=== PATIENT | female | born 1965 | race Caucasian/White ===

== ENCOUNTER 2020-02-14 06:28 | Observation (INO) | payer BC ==
[2020-02-14] MEDS ORDERED: HEPARIN SODIUM,PORCINE 5,000 UNIT/ML 1 ML VIAL IV PRN (06:42)
[2020-02-14] MEDS ORDERED: NITROGLYCERIN SL TABS 0.4 MG TAB SUBLINGUAL PRN (06:42)
[2020-02-14] MEDS ORDERED: HEPARIN SOD,PORK IN 0.45% NACL 25,000 UNIT in 0.45% NACL 1 250ML.BAG IV SCH (06:45)
--- NOTE | 2020-02-14 06:46 | ED ---
Chest Pain HPI - General Chief Complaint: Chest Pain Stated Complaint: Chest Pain Time Seen by Provider: 02/14/20 06:42 Source: patient, family, RN notes reviewed, old records reviewed Mode of arrival: ambulatory Limitations: no limitations - History of Present Illness Initial Comments: This is a 54-year-old female DF for evaluation patient presents today for evaluation regarding significant chest pain chest pain some diaphoresis seen at prior facility. Patient was transferred to our facility secondary to inability to take care of patient at the facility. Patient remains with mild chest pain but for the most part resolved currently. No shortness of breath no sweating. No recent travel history or sick contacts MD Complaint: chest pain -: hour(s) Onset: during rest, during exertion Pain Location: substernal Pain Radiation: none Severity: mild Quality: tightness, heaviness Consistency: intermittent, now resolved Improves With: nothing Worsens With: nothing Treatments Prior to Arrival: none - Related Data Allergies Allergy/AdvReac Type Severity Reaction Status Date / Time camphor [From Biofreeze] Allergy Rash/Hives Verified 02/14/20 06:34 menthol [From Biofreeze] Allergy Rash/Hives Verified 02/14/20 06:34 Penicillins Allergy Rash/Hives Verified 02/14/20 06:34 Review of Systems ROS Statement: Those systems with pertinent positive or pertinent negative responses have been documented in the HPI. ROS Other: All systems not noted in ROS Statement are negative. Past Medical History Past Medical History: Hyperlipidemia History of Any Multi-Drug Resistant Organisms: None Reported Past Surgical History: Cholecystectomy, Orthopedic Surgery Past Psychological History: No Psychological Hx Reported Smoking Status: Never smoker Past Alcohol Use History: Occasional Past Drug Use History: None Reported General Exam Limitations: no limitations General appearance: alert, in no apparent distress Head exam: Present: atraumatic, normocephalic, normal inspection Eye exam: Present: normal appearance, PERRL, EOMI. Absent: scleral icterus, c onjunctival injection, periorbital swelling ENT exam: Present: normal exam, mucous membranes moist Neck exam: Present: normal inspection. Absent: tenderness, meningismus, lymphadenopathy Respiratory exam: Present: normal lung sounds bilaterally. Absent: respiratory distress, wheezes, rales, rhonchi, stridor Cardiovascular Exam: Present: regular rate, normal rhythm, normal heart sounds. Absent: systolic murmur, diastolic murmur, rubs, gallop, clicks GI/Abdominal exam: Present: soft, normal bowel sounds. Absent: distended, tenderness, guarding, rebound, rigid Extremities exam: Present: normal inspection, full ROM, normal capillary refill. Absent: tenderness, pedal edema, joint swelling, calf tenderness Back exam: Present: normal inspection Neurological exam: Present: alert, oriented X3, CN II-XII intact Psychiatric exam: Present: normal affect, normal mood Skin exam: Present: warm, dry, intact, normal color. Absent: rash Course Vital Signs 02/14/20 06:29 Temperature 98.2 F Pulse Rate 63 Respiratory 18 Rate Blood Pressure 136/83 O2 Sat by Pulse 99 Oximetry - Reevaluation(s) Reevaluation #1: 02/14/20 06:44 Medical records reviewed 02/14/20 06:44 Spoke with transferring physician regarding patient 02/14/20 06:44 Transfer paperwork is reviewed Reevaluation #2: 02/14/20 06:44 Chest pain remains resolved - Consultations Consultation #1: Spoke with sound regarding admission Chest Pain MDM - MDM 54 female exception in transfer for chest pain observation. Patient will be admitted for chest pain rule out ACS Disposition Clinical Impression: Chest pain Disposition: ADMITTED IP TO THIS HOSP Condition: Undetermined Instructions (If sedation given, give patient instructions): Chest Pain (ED) Is patient prescribed a controlled substance at d/c from ED?: No Referrals: Castillo Dubose MD [Primary Care Provider] - 1-2 days
--- NOTE | 2020-02-14 08:50 | P.CRDCN ---
History of Present Illness History of present illness: HISTORY OF PRESENTING ILLNESS This is a pleasant 54-year-old female past medical history significant for dyslipidemia diagnosed one week ago by her primary care physician. She denies prior history of coronary artery disease and does not follow with a certified dialysis technician for any reason. We have been asked to see in consultation for chest pain. She states yesterday while at work she developed a discomfort in the epigastric region described as a sharp shooting pain. Initially while she was eating lunch she began coughing uncontrollably which is abnormal for her. Her discomfort started shortly thereafter. It was described as a tight sensation in the midsternal region. There is no radiation to the back, neck or jaw. Shortly thereafter while she was continuing to work she noticed discomfort in the left hand. 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 The pain was exacerbated by ongoing movement of her hand and thumb and relieved at rest. The chest tightness continued to persist and is still ongoing at this time. The discomfort is not reproducible on exam or related to inspiration. She initially presented to the [facility] and was transferred here for further cardiac evaluation. DIAGNOSTICS EKG reveals in his mechanism with no acute ischemic changes. Chest xray negative for an acute cardiopulmonary process. Laboratory reviewed, WBC 7.5, hemoglobin 14.5, creatinine 0.8 and cardiac enzymes negative 1. Current cardiac medications include atorvastatin 10 mg at bedtime. REVIEW OF SYSTEMS At the time of my exam: CONSTITUTIONAL: Denies fever or chills. CARDIOVASCULAR: Denies chest pain, shortness of breath, orthopnea, PND or palpitations. RESPIRATORY: Denies cough. GASTROINTESTINAL: Denies abdominal pain, diarrhea, constipation, nausea or vomiting. MUSCULOSKELETAL: Denies myalgias. NEUROLOGIC: Denies numbness, tingling or weakness. ENDOCRINE: Denies fatigue, weight change, polydipsia or polyurina. GENITOURINARY: Denies burning, hematuria or urgency with micturation. HEMATOLOGIC: Denies history of anemia or bleeding. PHYSICAL EXAMINATION Blood pressure 136/83 heart rate 63 afebrile and maintaining oxygen saturation on room air. CONSTITUTIONAL: No apparent distress. HEENT: Head is normocephalic. Pupils are equal, round. Sclerae anicteric. Mucous membranes of the mouth are moist. No JVD. No carotid bruit. CHEST EXAMINATION: Lungs are clear to auscultation. No chest wall tenderness is noted on palpation or with deep breathing. HEART EXAMINATION: Regular rate and rhythm. S1, S2 heard. No murmurs, gallops or rub. ABDOMEN: Soft, nontender. Positive bowel sounds. EXTREMITIES: 2+ peripheral pulses, no lower extremity edema and no calf tenderness. NEUROLOGIC EXAMINATION: Patient is awake, alert and oriented x3. ASSESSMENT Chest pain, atypical. Left hand pain, likely musculoskeletal related to repetitive movement from her daily job. Dyslipidemia PLAN Obtaine second troponin stat. If negative heparin infusion can be discontinued and we will proceed with stress echocardiogram. Obtain 2-D echocardiogram and Doppler study to assess cardiac structure and function. If stress test is normal she may be discharged from a cardiac perspective to follow-up with Dr. Cowart as an outpatient. Thank you kindly for this consultation. Nurse Practitioner note has been reviewed, I agree with a documented findings and plan of care. Patient was seen and examined. Past Medical History Past Medical History: Hyperlipidemia History of Any Multi-Drug Resistant Organisms: None Reported Past Surgical History: Cholecystectomy, Orthopedic Surgery Past Psychological History: No Psychological Hx Reported Smoking Status: Never smoker Past Alcohol Use History: Occasional Past Drug Use History: None Reported Medications and Allergies Home Medications Medication Instructions Recorded Confirmed Type Atorvastatin [Lipitor] 10 mg PO HS 02/14/20 02/14/20 History Cholecalciferol [Vitamin D3 (25 1,000 unit PO DAILY 02/14/20 02/14/20 History Mcg = 1000 Iu)] Meloxicam [Mobic] 15 mg PO DAILY PRN 02/14/20 02/14/20 History Vitamin B Complex 1 cap PO DAILY 02/14/20 02/14/20 History Allergies Allergy/AdvReac Type Severity Reaction Status Date / Time camphor [From Biofreeze] Allergy Rash/Hives Verified 02/14/20 07:19 menthol [From Biofreeze] Allergy Rash/Hives Verified 02/14/20 07:19 mold Allergy Unknown Verified 02/14/20 07:19 Penicillins Allergy Rash/Hives Verified 02/14/20 07:19 Physical Exam Vitals: Vital Signs Temp Pulse Resp BP Pulse Ox 02/14/20 06:29 98.2 F 63 18 136/83 99 Intake and Output 02/13/20 02/14/20 02/14/20 22:59 06:59 14:59 Other: Weight 63.049 kg Results Current Medications Generic Name Dose Route Start Last Admin Trade Name Freq PRN Reason Stop Dose Admin Aspirin 81 mg 02/15/20 09:00 Aspirin PO DAILY [facility] Atorvastatin Calcium 80 mg 02/14/20 09:00 Lipitor PO DAILY [facility] Heparin Sodium (Porcine) 0 unit 02/14/20 06:42 Heparin IV Q6HR PRN Low PTT Protocol Heparin Sodium/Sodium Chloride 250 mls @ 7.566 mls/hr 02/14/20 06:45 02/14/20 07:21 25,000 unit/ Sodium Chloride IV 12 units/kg/hr .Q24H DAHLIA 7.566 mls/hr Administration Protocol 12 UNITS/KG/HR Nitroglycerin 0.4 mg 02/14/20 06:42 Nitrostat SUBLINGUAL Q5M PRN Chest Pain Intake and Output 02/13/20 02/14/20 02/14/20 22:59 06:59 14:59 Other: Weight 63.049 kg
[2020-02-14] MEDS ORDERED: METOPROLOL TARTRATE 25 MG TAB PO SCH (09:00)
[2020-02-14] MEDS ORDERED: ATORVASTATIN 80 MG TAB PO SCH (09:00)
[2020-02-14 09:06] LABS: Cholesterol 153 mg/dL (<200); HDL Cholesterol 55 mg/dL (40-60); LDL Cholesterol,Calculated 92 mg/dL (0-99); Triglycerides 32 mg/dL (<150)
[2020-02-14] MEDS ORDERED: MELOXICAM 7.5 MG TAB PO PRN (10:02)
--- NOTE | 2020-02-14 10:03 | P.HPIM ---
History of Present Illness H&P Date: 02/14/20 Chief Complaint: Chest discomfort This is a 54-year-old female with past medical history noted below who was transferred from [place] for further evaluation of chest tightness. Patient said that her symptoms started yesterday when she was at work having lunch. She said that it was mostly tightness not pain in the midsternal area. She denies any radiation or shortness of breath associated with her presentation. No diaphoresis. No dizziness or lightheadedness. Patient said that initially she thought that she was having some stomach discomfort and then was concerned and decided to come to the emergency room. She was also having what she describes as a funny feeling in her left hand. She said that time she was doing repetitive movement with her left hand during work. That resolved shortly after. She currently denies any numbness or weakness involving her hand. She denies any chest pain. She was evaluated in the ER and 12-lead EKG showed no acute ischemic changes. Initial troponin was negative. Patient denies any cardiac history. She is fairly active and walk approximately 6 miles per day. She does not have any exertional dyspnea. She is a nonsmoker. Review of Systems Review of system: 14 points review of systems were obtained and were negative except to what were mentioned in the HPI. Past Medical History Past Medical History: Hyperlipidemia History of Any Multi-Drug Resistant Organisms: None Reported Past Surgical History: Cholecystectomy, Orthopedic Surgery Past Psychological History: No Psychological Hx Reported Smoking Status: Never smoker Past Alcohol Use History: Occasional Past Drug Use History: None Reported Medications and Allergies Home Medications Medication Instructions Recorded Confirmed Type Atorvastatin [Lipitor] 10 mg PO HS 02/14/20 02/14/20 History Cholecalciferol [Vitamin D3 (25 1,000 unit PO DAILY 02/14/20 02/14/20 History Mcg = 1000 Iu)] Meloxicam [Mobic] 15 mg PO DAILY PRN 02/14/20 02/14/20 History Vitamin B Complex 1 cap PO DAILY 02/14/20 02/14/20 History Allergies Allergy/AdvReac Type Severity Reaction Status Date / Time camphor [From Biofreeze] Allergy Rash/Hives Verified 02/14/20 07:19 menthol [From Biofreeze] Allergy Rash/Hives Verified 02/14/20 07:19 mold Allergy Unknown Verified 02/14/20 07:19 Penicillins Allergy Rash/Hives Verified 02/14/20 07:19 Physical Exam Vitals: Vital Signs Temp Pulse Resp BP Pulse Ox 02/14/20 06:29 98.2 F 63 18 136/83 99 Intake and Output 02/13/20 02/14/20 02/14/20 22:59 06:59 14:59 Intake Total 9.962 Balance 9.962 Intake: Intake, IV Titration 9.962 Amount Heparin Sod,Pork in 0.45% 9.962 NaCl 25,000 unit In 0.45 % NaCl 1 250ml.bag @ 12 UNITS/KG/HR 7.566 mls/hr IV .Q24H [facility] Rx#: [id number] Other: Weight 63.049 kg General: The patient is awake and alert, in no distress Eye: there is normal conjunctiva bilaterally. Neck: The neck is supple, there is no JVD. Cardiovascular: Normal S1-S2, no S3-S4, no murmurs. Respiratory: Lungs clear to auscultation bilaterally Gastrointestinal: Abdomen is soft, nontender Musculoskeletal: There is no pedal edema. Neurological:. Speech is normal. Skin: Skin is warm and dry Assessment and Plan Assessment: 1. Chest tightness: Most likely atypical in nature. Twelve-lead EKG showed no acute ischemic changes. Serial troponin negative [id number]. Patient was seen and evaluated by cardiology. Exercise stress test ordered. No evidence of ACS. Discontinue IV heparin drip. 2. Dyslipidemia, continue home dose of Lipitor
--- NOTE | 2020-02-14 12:41 | ECHOF ---
Referral Reason: MEASUREMENTS -------- HEIGHT: 172.7 cm WEIGHT: 63.0 kg BP: 136/83 IVSd: 1.1 cm (0.6 - 1.1) LVIDd: 3.9 cm (3.9 - 5.3) LVPWd: 1.1 cm (0.6 - 1.1) IVSs: 1.2 cm LVIDs: 2.6 cm LVPWs: 1.6 cm LAESV Index (A-L): 16.14 ml/m Ao Diam: 2.3 cm (2.0 - 3.7) AV Cusp: 1.5 cm (1.5 - 2.6) LA Diam: 3.0 cm (2.7 - 3.8) MV EXCURSION: 13.362 mm (> 18.000) MV EF SLOPE: 77 mm/s (70 - 150) EPSS: 1.2 cm MV E Mani: 0.79 m/s MV DecT: 273 ms MV A Mani: 0.87 m/s MV E/A Ratio: 0.90 RAP: 5.00 mmHg RVSP: 10.82 mmHg FINDINGS -------- Sinus rhythm. This was a technically adequate study. The left ventricular size is normal. Left ventricular wall thickness is normal. Overall left vent ricular systolic function is normal with, an EF between 55 - 60 %. The diastolic filling pattern is normal for the age of the patient 8.12. The right ventricle is normal in size. Normal LA size by volume 22+/-6 ml/m2. The right atrial size is normal. Interatrial and interventricular septum intact. The aortic valve is trileaflet, and appears structurally normal. No aortic stenosis or regurgitation. The mitral valve is normal. There is trace mitral regurgitation. The tricuspid valve appears structurally normal. Trace tricuspid regurgitation present. Right jose tricular systolic pressure is normal at < 35 mmHg. There is no pulmonic regurgitation present. The aortic root size is normal. Normal inferior vena cava with normal inspiratory collapse consistent with estimated right atrial pre ssure of 5 mmHg. There is no pericardial effusion. CONCLUSIONS -------- 1. Left ventricular wall thickness is normal. 2. Overall left ventricular systolic function is normal with, an EF between 55 - 60 %. 3. The diastolic filling pattern is normal for the age of the patient 8.12 4. Normal LA size by volume 22+/-6 ml/m2. 5. The aortic valve is trileaflet, and appears structurally normal. No aortic stenosis or regurgitati on. 6. There is trace mitral regurgitation. 7. Trace tricuspid regurgitation present. MAINTENANCE WELDER: Crys Younger RDCS
--- NOTE | 2020-02-14 14:26 | ECHOS ---
STRESS ECHOCARDIOGRAM LUMASON: Vial INDICATIONS: Chest pain. MEDICATIONS: Mobic, Vitamin D3, Vitamin B Complex, Lipitor. BASELINE HEART RATE: 61 BASELINE BLOOD PRESSURE: 125/69 MAXIMUM HEART RATE: 162 MAXIMUM BLOOD PRESSURE: 178/88 85% MPHR: 141 100% MPHR: 166 METS: 8.3 MAXIMUM STAGE REACHED: 3 TOTAL EXERCISE TIME: 7:08 CLINICAL INFORMATION: Baseline rhythm is a sinus mechanism, rate 61, normal axis, intervals, normal echocardiogram. Baseline blood pressure 125/60 mmHg. Patient exercised post protocol for 7 minute 8 seconds reaching peak rate of 162 beats per minute which is equal to 96% maximum predicted heart rate. Peak blood pressure 178/88 mmHg. Test was terminated due to fatigue. There was no chest pain. Electrocardiograph monitoring revealed a 0.[address]-segment depression inferolateral leads that resolved in recovery. FINDINGS: Baseline echocardiogram revealed normal wall motion. At peak exercise, there was normal wall motion augmentation with no hypokinesis or dyskinesis. CONCLUSION: 1. Average exercise tolerance with borderline positive electrocardiograph stress testing. 2. Normal stress echocardiogram with no evidence of stress-induced ischemia. MMODL / IJN: [id number] /
[2020-02-14 16:47] VITALS: BP 133/90; PULSE 77; RESP 16; TEMP 97.7
--- NOTE | 2020-02-14 16:55 | P.DS ---
Providers Date of admission: 02/14/20 06:43 Expected date of discharge: 02/14/20 Attending physician: Barbara Capone MD Consults: 02/14/20 06:42 Consult Physician Urgent Consulting Provider: Margot Cowart Consult Reason/Comments: cp Do you want consulting provider notified?: Yes Primary care physician: Castillo Krishnamurthy [facility] Course: This is a 54-year-old female with past medical history significant for hyperlipidemia who presented to the emergency room with chest tightness. Patient was evaluated in the ER in 12-lead EKG showed no acute ischemic changes. She was placed on observation and serial troponin were negative 2 sets. She was seen and evaluated by cardiology and underwent stress echocardiogram that was reported negative. Patient was cleared by cardiology for discharge home. She will continue her home dose of Lipitor. Patient will be discharged home in a stable condition. For further details about this hospitalization please refer to the electronic chart. Patient Condition at Discharge: Fair Plan - Discharge Summary Discharge Rx Participant: No New Discharge Prescriptions: Continue Meloxicam [Mobic] 15 mg PO DAILY PRN PRN Reason: Pain Cholecalciferol [Vitamin D3 (25 Mcg = 1000 Iu)] 1,000 unit PO DAILY Vitamin B Complex 1 cap PO DAILY Atorvastatin [Lipitor] 10 mg PO HS Discharge Medication List Atorvastatin [Lipitor] 10 mg PO HS 02/14/20 [History] Cholecalciferol [Vitamin D3 (25 Mcg = 1000 Iu)] 1,000 unit PO DAILY 02/14/20 [History] Meloxicam [Mobic] 15 mg PO DAILY PRN 02/14/20 [History] Vitamin B Complex 1 cap PO DAILY 02/14/20 [History] Follow up Appointment(s)/Referral(s): Margot Cowart MD [STAFF PHYSICIAN] - 2 Weeks Castillo Dubose MD [Primary Care Provider] - 1-2 days Patient Instructions/Handouts: Chest Pain (ED) Discharge Disposition: HOME SELF-CARE
[2020-02-14] MEDS ORDERED: ATORVASTATIN 10 MG TAB PO SCH (21:00)
[2020-02-15] MEDS ORDERED: NON FORMULARY DRUG (Vitamin B Complex [Vitamin B Complex] 1 CAP) PO SCH (09:00)
[2020-02-15] MEDS ORDERED: ASPIRIN 325 MG TAB PO SCH (09:00)
[2020-02-15] MEDS ORDERED: ASPIRIN 81 MG PO SCH (09:00)
[2020-02-15] MEDS ORDERED: CHOLECALCIFEROL 1,000 UNIT TAB PO SCH (09:00)
== END 2020-02-14 18:00 | disposition home or self-care (01) ==
LOC: EC 06:28 → 3NCARDOBS 06:43
PROVIDERS: ADMIT Internal Medicine; ATTEND Internal Medicine
DX: R07.89 Other chest pain (principal); R10.13 Epigastric pain; M79.642 Pain in left hand; E78.5 Hyperlipidemia, unspecified; Z90.49 Acquired absence of other specified parts of digestive tract; Z98.890 Other specified postprocedural states; Z79.899 Other long term (current) drug therapy; Z88.0 Allergy status to penicillin; Z88.8 Allergy status to other drugs, medicaments and biological substances; Z91.048 Other nonmedicinal substance allergy status
CPT/HCPCS: 96365; 99285; 93005; 93306; 93351; 80061; 84484; G0378; J1644

== ENCOUNTER 2020-11-26 08:21 | Day surgery (SDC) | payer BC ==
[2020-11-24 13:31] VITALS: BMI 21.2
[2020-11-26 08:40] VITALS: TEMP 97.6
[2020-11-26] MEDS ORDERED: LACTATED RINGERS 1,000 ML IV ONE (08:51)
[2020-11-26] MEDS ORDERED: LIDOCAINE 1% (10MG/ML) FOR IV START INTRADERMA ONE (08:52)
[2020-11-26] MEDS ORDERED: fentaNYL (PF) 50 MCG/ML 2 ML AMP ONE (09:16)
[2020-11-26] MEDS ORDERED: MIDAZOLAM 2 MG/2 ML VIAL ONE (09:16)
[2020-11-26] MEDS ORDERED: PROPOFOL 10 MG/ML 20 ML VIAL IV ONE (09:16)
--- NOTE | 2020-11-26 09:38 | P.PCN ---
Date of Procedure: 11/26/20 Procedure(s) Performed: Brief history: Patient is a pleasant 55-year-old pleasant white female scheduled for an elective upper endoscopy as well as colonoscopy as a part of evaluation of intermittent episodes of nausea, vomiting and change in bowel habits for the last 1 year duration. She has been having alternating diarrhea and constipation. No rectal bleeding. Procedure performed: Esophagogastroduodenoscopy with biopsy Colonoscopy with random biopsy and snare polypectomy Preoperative diagnosis: Nausea vomiting Change in bowel habits Anesthesia: MAC Procedure: After informed consent was obtained from the patient was brought into the endoscopy unit and IV sedation was administered by anesthesia under continuous monitoring. Initially upper endoscopy was done. The Olympus GF 160 video endoscope was inserted inserted into the mouth and esophagus intubated without any difficulty and was gradually advanced into the stomach and duodenum and carefully examined. The bulb and second part of the duodenum appeared normal. The scope was then withdrawn into the stomach adequately insufflated with air and upon careful examination the antrum had mild gastritis and biopsies were done from this area. The body, cardia and fundus appeared normal. The scope was then withdrawn into the esophagus. The GE junction was located at 40 cm to the incisors. It appeared regular with no erythema erosions or ulcerations. Rest of the esophagus appeared normal. Patient tolerated the procedure well. At this time the patient continued to remain sedation. Initial digital rectal examination was normal. Olympus CF 160 video colonoscope was then inserted into the rectum and gradually advanced to the cecum without any difficulty. Careful examination was performed as the scope was gradually being withdrawn. The prep was excellent. The cecum, ascending colon, transverse colon, descending colon, sigmoid colon appeared normal. and biopsies were done from ascending and descending colon to rule out microscopic/collagenous colitis in the rectum there was a 1 cm polyp removed by snare polypectomy. Retroflexion was performed in the rectum and no lesions were noted. Patient tolerated the procedure well. Impression: 1. Upper Endoscopy revealed mild antral gastritis but no evidence of esophagitis or peptic ulcer disease. 2. Colonoscopy revealed 1 cm rectal polyp status post polypectomy. Rest of the colon appeared normal.. Recommendations: Findings of this examination were discussed with the patient as well as her family. She was advised to follow with the biopsy results. she'll be seen in office in 2-3 weeks. The biopsy reveals adenoma she can have a repeat colonoscopy in 3 years.
[2020-11-26 09:43] VITALS: PULSE 68
[2020-11-26 09:55] VITALS: BP 106/65; RESP 16
== END 2020-11-26 10:26 | disposition home or self-care (01) ==
LOC: ORWHC2ENDO 08:21
PROVIDERS: ATTEND Internal Medicine Gastroenterology
DX: D12.8 Benign neoplasm of rectum (principal); D72.820 Lymphocytosis (symptomatic); K29.50 Unspecified chronic gastritis without bleeding; K20.90 Esophagitis, unspecified without bleeding; R43.9 Unspecified disturbances of smell and taste; Z79.899 Other long term (current) drug therapy; Z88.0 Allergy status to penicillin; Z88.8 Allergy status to other drugs, medicaments and biological substances; Z91.09 Other allergy status, other than to drugs and biological substances
CPT/HCPCS: 88305; 88342; 88341; 45380; 45385; 43239; J2250; J3010; J2704

== ENCOUNTER 2021-01-03 05:14 | Observation (INO) | payer BC ==
[2021-01-03 06:25] LABS: Basophils % (A) 0 %; Eosinophils # (A) 0.1 k/uL (0-0.7); Eosinophils % (A) 1 %; HCT 41.6 % (34.0-46.0); HGB 14.9 gm/dL (11.4-16.0); Lymphocytes # (A) 1.8 k/uL (1.0-4.8); Lymphocytes % (A) 34 %; MCH 32.1 pg (25.0-35.0); MCHC 35.7 g/dL (31.0-37.0); MCV 89.8 fL (80.0-100.0); Mean Platelet Volume 6.5; Monocytes # (A) 0.3 k/uL (0-1.0); Monocytes % (A) 6 %; Neutrophils % (A) 57 %; Platelet Count 369 k/uL (150-450); RBC 4.63 m/uL (3.80-5.40); RDW 11.4 % (11.5-15.5); WBC 5.2 k/uL (3.8-10.6)
[2021-01-03 06:39] LABS: Appearance,Urine Clear (Clear); Bilirubin,Urine Negative (Negative); Blood,Urine Negative (Negative); Color,Urine Yellow; Glucose,Urine (UA) Negative (Negative); Ketones,Urine 1+ (Negative); Leukocyte Esterase,Urine Small (Negative); Mucus,Urine Occasional /hpf; Nitrite,Urine Negative (Negative); PH, Urine 5.5 (5.0-8.0); Protein,Urine Negative (Negative); RBC,Urine 1 /hpf (0-5); Specific Gravity,Urine 1.014 (1.001-1.035); Squamous Epithelial Cell,Urine <1 /hpf (0-4); Urobilinogen,Urine <2.0 mg/dL (<2.0); WBC,Urine 3 /hpf (0-5)
[2021-01-03 06:42] LABS: Albumin 4.5 g/dL (3.5-5.0); Potassium 4.1 mmol/L (3.5-5.1); Total Bilirubin 2.9 mg/dL (0.2-1.3); Total Protein 7.1 g/dL (6.3-8.2)
[2021-01-03] MEDS ORDERED: ONDANSETRON 4 MG/2 ML VIAL IVP PRN (07:13)
[2021-01-03] MEDS ORDERED: NALOXONE 0.4 MG/ML 1 ML VIAL IV PRN (07:13)
[2021-01-03] MEDS ORDERED: MORPHINE SULFATE 4 MG/ML SYRINGE IV PRN (07:13)
--- NOTE | 2021-01-03 07:25 | ED ---
Back Pain HPI - General Chief Complaint: Back Pain/Injury Stated Complaint: Back Pain Time Seen by Provider: 01/03/21 05:38 Source: patient Limitations: no limitations - History of Present Illness MD Complaint: back pain -: days(s) Similar Symptoms Previously: Yes Place: home Radiation: abdomen Severity: moderate Quality: aching Consistency: constant Improves With: none Worsens With: eating Associated Symptoms: nausea/vomiting - Related Data Home Medications Medication Instructions Recorded Confirmed Atorvastatin [Lipitor] 10 mg PO HS 02/14/20 11/26/20 Cholecalciferol [Vitamin D3 (25 1,000 unit PO DAILY 02/14/20 11/26/20 Mcg = 1000 Iu)] Vitamin B Complex 1 cap PO DAILY 02/14/20 11/26/20 Allergies Allergy/AdvReac Type Severity Reaction Status Date / Time adhesive Allergy Rash/Hives Verified 01/03/21 05:24 camphor [From Biofreeze] Allergy Rash/Hives Verified 01/03/21 05:24 menthol [From Biofreeze] Allergy Rash/Hives Verified 01/03/21 05:24 mold Allergy Unknown Verified 01/03/21 05:24 Penicillins Allergy Rash/Hives Verified 01/03/21 05:24 Review of Systems ROS Statement: Those systems with pertinent positive or pertinent negative responses have been documented in the HPI. ROS Other: All systems not noted in ROS Statement are negative. Constitutional: Denies: fever, chills Respiratory: Denies: cough, dyspnea Cardiovascular: Denies: chest pain, palpitations Gastrointestinal: Reports: abdominal pain, nausea. Denies: vomiting, diarrhea, constipation, hematemesis, melena, hematochezia Genitourinary: Denies: dysuria, hematuria Musculoskeletal: Reports: back pain Skin: Denies: rash Neurological: Denies: headache, weakness Past Medical History Past Medical History: Hyperlipidemia History of Any Multi-Drug Resistant Organisms: None Reported Past Surgical History: Cholecystectomy, Orthopedic Surgery, Tubal Ligation Additional Past Surgical History / Comment(s): Scopes for Endometriosis. Past Anesthesia/Blood Transfusion Reactions: Postoperative Nausea & Vomiting (PONV) Additional Past Anesthesia/Blood Transfusion Reaction / Comment(s): "Loss of sense of taste and smell for 6 months after last time I had anesthesia". Past Psychological History: No Psychological Hx Reported Smoking Status: Never smoker Past Alcohol Use History: Rare Past Drug Use History: None Reported - Past Family History Mother Family Medical History: No Reported History General Exam Limitations: no limitations General appearance: alert, in no apparent distress Head exam: Present: atraumatic, normocephalic Eye exam: Present: normal appearance. Absent: scleral icterus, conjunctival injection ENT exam: Present: normal oropharynx Respiratory exam: Present: normal lung sounds bilaterally. Absent: respiratory distress, wheezes, rales, rhonchi, stridor Cardiovascular Exam: Present: regular rate, normal rhythm, normal heart sounds. Absent: systolic murmur, diastolic murmur, rubs, gallop GI/Abdominal exam: Present: soft. Absent: distended, tenderness, guarding, rebound, rigid, mass Extremities exam: Present: normal inspection, normal capillary refill. Absent: pedal edema, calf tenderness Back exam: Present: normal inspection. Absent: CVA tenderness (R), CVA tenderness (L), paraspinal tenderness, vertebral tenderness Neurological exam: Present: alert Skin exam: Present: warm, dry, intact, normal color. Absent: rash Course Vital Signs 01/03/21 01/03/21 05:18 07:20 Temperature 98.1 F Pulse Rate 67 93 Respiratory 20 18 Rate Blood Pressure 139/78 116/78 O2 Sat by Pulse 98 97 Oximetry Medical Decision Making - Medical Decision Making This patient is a 55-year-old woman who presents with upper back and to lesser extent upper abdominal pain that she states is consistent with previous episode pancreatitis. She had gone to outside hospital on Tuesday. She had been treated with GI rest at home, but states that S and she tried taking oral intake the symptoms recurred. Patient has not had change in bowel movements. She is having nausea and not tolerating oral intake. - Lab Data Result diagrams: 01/03/21 06:06 01/03/21 06:06 Lab Results 01/03/21 01/03/21 01/03/21 Range/Units 06:06 06:06 06:06 WBC 5.2 (3.8-10.6) k/uL RBC 4.63 (3.80-5.40) m/uL Hgb 14.9 (11.4-16.0) gm/dL Hct 41.6 (34.0-46.0) % MCV 89.8 (80.0-100.0) fL MCH 32.1 (25.0-35.0) pg MCHC 35.7 (31.0-37.0) g/dL RDW 11.4 L (11.5-15.5) % Plt Count 369 (150-450) k/uL MPV 6.5 Neutrophils % 57 % Lymphocytes % 34 % Monocytes % 6 % Eosinophils % 1 % Basophils % 0 % Neutrophils # 3.0 (1.3-7.7) k/uL Lymphocytes # 1.8 (1.0-4.8) k/uL Monocytes # 0.3 (0-1.0) k/uL Eosinophils # 0.1 (0-0.7) k/uL Basophils # 0.0 (0-0.2) k/uL Sodium 139 (137-145) mmol/L Potassium 4.1 (3.5-5.1) mmol/L Chloride 103 (98-107) mmol/L Carbon Dioxide 27 (22-30) mmol/L Anion Gap 9 mmol/L BUN 11 (7-17) mg/dL Creatinine 0.87 (0.52-1.04) mg/dL Est GFR (CKD-EPI)AfAm 87 (>60 ml/min/1.73 sqM) Est GFR (CKD-EPI)NonAf 75 (>60 ml/min/1.73 sqM) Glucose 110 H (74-99) mg/dL Calcium 10.0 (8.4-10.2) mg/dL Total Bilirubin 2.9 H (0.2-1.3) mg/dL AST 28 (14-36) U/L ALT 25 (4-34) U/L Alkaline Phosphatase 61 (38-126) U/L Total Protein 7.1 (6.3-8.2) g/dL Albumin 4.5 (3.5-5.0) g/dL Amylase 96 (30-110) U/L Lipase 416 H (23-300) U/L Urine Color Yellow Urine Appearance Clear (Clear) Urine pH 5.5 (5.0-8.0) Ur Specific [place] 1.014 (1.001-1.035) Urine Protein Negative (Negative) Urine Glucose (UA) Negative (Negative) Urine Ketones 1+ H (Negative) Urine Blood Negative (Negative) Urine Nitrite Negative (Negative) Urine Bilirubin Negative (Negative) Urine Urobilinogen <2.0 (<2.0) mg/dL Ur Leukocyte Esterase Small H (Negative) Urine RBC 1 (0-5) /hpf Urine WBC 3 (0-5) /hpf Ur Squamous Epith Cells <1 (0-4) /hpf Urine Mucus Occasional H (None) /hpf - EKG Data -: EKG Interpreted by Me EKG shows normal: sinus rhythm, axis (Normal), intervals (Short ND interval), QRS complexes (Normal), ST-T waves (Normal) Rate: normal (Rate 64 bpm) Disposition Clinical Impression: Abdominal pain Disposition: ADMITTED IP TO THIS HOSP Referrals: Castillo Dubose MD [Primary Care Provider] - 1-2 days
[2021-01-03] MEDS: SODIUM CHLORIDE 0.9% 1,000 ML IV SCH ×3 (07:28→23:09)
[2021-01-03] MEDS ORDERED: FAMOTIDINE 20 MG TAB PO SCH (09:00)
[2021-01-03 14:23] VITALS: BMI 20.9
[2021-01-03] MEDS ORDERED: HYDROmorphone 0.5 MG/0.5 ML SYRINGE IVP PRN (15:36)
[2021-01-03] MEDS ORDERED: HYDROcodone/APAP 5-325MG 1 EACH TAB PO PRN (15:36)
--- NOTE | 2021-01-03 16:44 | XR ---
EXAMINATION TYPE: XR chest 1V portable DATE OF EXAM: 01/03/2021 COMPARISON: 02/14/2020 HISTORY: Abdominal pain. TECHNIQUE: FINDINGS: Heart and mediastinum are normal. Lungs are clear. Diaphragm is normal. Bony thorax appears normal. IMPRESSION: Normal chest. No change.
[2021-01-03 17:13] LABS: ALT 21 U/L (4-34); AST 25 U/L (14-36); African American GFR (CKD) 90 (>60 ml/min/1.73 sqM); Albumin 3.7 g/dL (3.5-5.0); Albumin/Globulin Ratio 1.5; Alkaline Phosphatase 47 U/L (38-126); Anion Gap 5 mmol/L; Blood Urea Nitrogen 9 mg/dL (7-17); Calcium 9.2 mg/dL (8.4-10.2); Carbon Dioxide 30 mmol/L (22-30); Chloride 104 mmol/L (98-107); Globulin 2.5 g/dL; Glucose 87 mg/dL (74-99); Lipase 557 U/L (23-300); Non-African American GFR(CKD) 78 (>60 ml/min/1.73 sqM); Sodium 139 mmol/L (137-145); Total Protein 6.2 g/dL (6.3-8.2)
--- NOTE | 2021-01-03 17:50 | HP ---
HISTORY AND PHYSICAL CHIEF COMPLAINT: Back pain and abdominal pain. HISTORY OF PRESENT ILLNESS: This is a 55-year-old woman with a past medical history hyperlipidemia, history of cholecystectomy, history of orthopedic surgery, history of tubal ligation, history of endometriosis, previous history of pancreatitis being followed by Dr. Dubose in the outpatient setting, was complaining of upper back pain and upper abdominal pain. The patient was evaluated in [facility] and CT scan of the abdomen showed status post tubal ligation, cholecystectomy, minimal nonobstructive on the right. No convincing evidence of pancreatic pathology is noted, however, pancreatitis is suspected. The patient was transferred to [facility] for further evaluation and treatment. The lipase is 416, amylase is 96, and glucose is 110. The patient admitted for further evaluation and treatment. There is no history of fever, rigors or chills at this time. PAST MEDICAL HISTORY: History of hyperlipidemia, history of DJD, cholecystectomy, tubal ligation. MEDICATIONS: Prior to admission include home medications are multivitamins, Pepcid and vitamin D3. ALLERGIES: Biofreeze, MOLD, PENICILLIN. FAMILY HISTORY: No history of heart disease or strokes in the family. SOCIAL HISTORY: No history of smoking. No history of alcohol intake. REVIEW OF SYSTEMS: ENT: No diminished vision or hearing. CARDIOVASCULAR: As mentioned earlier. RESPIRATORY: As mentioned earlier. GI: As mentioned earlier. : No dysuria. NERVOUS SYSTEM: No numbness or weakness. ALLERGY/IMMUNOLOGY: No asthma or hayfever. MUSCULOSKELETAL: As mentioned earlier. HEMATOLOGY: No history of anemia. ENDOCRINE: No history of diabetes or hypothyroidism. CONSTITUTIONAL: As mentioned earlier. DERMATOLOGY: Negative. RHEUMATOLOGY: Negative. PSYCHIATRY: As mentioned earlier. PHYSICAL EXAMINATION: GENERAL: Patient is alert and oriented times three. VITAL SIGNS: Pulse 75, blood pressure 123/76, respirations 16, temperature 97.9, pulse ox 97% on room air. HEENT: Conjunctivae normal. NECK: No jugular venous distention. No carotid bruits. No lymph node enlargement. RESPIRATORY: Breath sounds diminished at the bases. A few scattered rhonchi and crackles. HEART: S1 and S2, muffled. ABDOMEN: Soft, no tenderness. No masses palpable. EXTREMITIES: No edema, no swelling. NERVOUS: Higher functions as mentioned earlier. Moves all four limbs. No focal motor or sensory deficits. LYMPHATICS: No lymph nodes palpable in the neck or axillae. SKIN: Multiple skin tags on the left arm present. LABS: WBC 5.2, hemoglobin 14.6, sodium 139, potassium 4.1. ASSESSMENT: 1. Abdominal pain and back pain, possible acute pancreatitis. 2. History of previous pancreatitis. 3. Elevated total bilirubin. 4. Elevated lipase. 5. History of hyperlipidemia. 6. History of cholecystectomy. 7. History of degenerative joint disease. 8. History of tubal ligation. 9. History of endometriosis. 10.Postop nausea, vomiting. 11.FULL CODE. 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 RECOMMENDATION AND DISCUSSION: Recommend to continue current medications, continue symptomatic treatment. Otherwise at this time Gastrology consultation. DVT prophylaxis. Proton pump inhibitors. Prognosis guarded because of multiple complex medical issues. Further recommendations to follow. Might require MRCP and other evaluation down the line. MMODL / IJN: [id number] / MTDD
[2021-01-04] MEDS: SODIUM CHLORIDE 0.9% 1,000 ML IV SCH ×3 (06:18→14:35)
[2021-01-04] MEDS ORDERED: MULTIVITAMINS, THERA 1 EACH TAB PO SCH (09:00)
[2021-01-04] MEDS ORDERED: CHOLECALCIFEROL 25 MCG (1000 IU) TABLET PO SCH (09:00)
--- NOTE | 2021-01-04 09:25 | P.CONS ---
History of Present Illness - Reason for Consult Consult date: 01/03/21 Pancreatitis Requesting physician: Cyndi Olmos - Chief Complaint Pancreatitis - History of Present Illness 55-year-old female with medical history significant for hyperlipidemia and prior cholecystectomy who presented as a transfer from an outside hospital for pancreatitis. The patient had presented to the ER complaining of pain in the epigastric region of her abdomen. She were described the pain as sharp and severe and reported associated back pain. She reports 1 prior episode of pancreatitis. She denies any family history of pancreatitis, any tobacco abuse and reports only rare use of alcohol. She states that she had been seen earlier in the week with complaints of abdominal pain and told to go home and not eat. Previously she has undergone EGD and colonoscopy with Dr. Gaston on 11/26/20 for pain and altered bowel function and was found to have mild gastritis and a rectal polyp. On presentation lipase 414 with total bilirubin 2.9, alkaline phosphatase 61, AST 28 and ALT 25. She's previously been told that she has Gilbert's syndrome and a benign elevation in her total bilirubin. Review of Systems REVIEW OF SYSTEMS: CONSTITUTIONAL: Denies any fevers, chills, weight change or fatigue. CARDIOVASCULAR: Denies any chest pain, palpitations high or low blood pressures RESPIRATORY: Denies any shortness of breath, hemoptysis or cough. GENITOURINARY: No dysuria or hematuria. MUSCULOSKELETAL: No weakness reported, she does report back pain. SKIN: Denies any new rashes or lesions, jaundice or pallor. PSYCHIATRIC: Denies any depression or anxiety. NEUROLOGY: Denies headache, denies any new focal deficits. EARS/NOSE/THROAT: No recent hearing change, congestion, nasal discharge or sore throat. EYES: No pain in eyes, discharge or change in vision. GASTROINTESTINAL: As per HPI. Past Medical History Past Medical History: Hyperlipidemia History of Any Multi-Drug Resistant Organisms: None Reported Past Surgical History: Cholecystectomy, Orthopedic Surgery, Tubal Ligation Additional Past Surgical History / Comment(s): Scopes for Endometriosis. Past Anesthesia/Blood Transfusion Reactions: Postoperative Nausea & Vomiting (PONV) Additional Past Anesthesia/Blood Transfusion Reaction / Comm: "Loss of sense of taste and smell for 6 months after last time I had anesthesia". Past Psychological History: No Psychological Hx Reported Smoking Status: Never smoker Past Alcohol Use History: Rare Past Drug Use History: None Reported - Past Family History Mother Family Medical History: No Reported History Medications and Allergies Home Medications Medication Instructions Recorded Confirmed Type Cholecalciferol [Vitamin D3 (25 50 mcg PO DAILY 02/14/20 01/03/21 History Mcg = 1000 Iu)] Famotidine 20 mg PO BID PRN 01/03/21 01/03/21 History Multivitamins, Thera [Multivitamin 1 tab PO DAILY 01/03/21 01/03/21 History (formulary)] Allergies Allergy/AdvReac Type Severity Reaction Status Date / Time adhesive Allergy Rash/Hives Verified 01/03/21 10:09 camphor [From Biofreeze] Allergy Rash/Hives Verified 01/03/21 10:09 menthol [From Biofreeze] Allergy Rash/Hives Verified 01/03/21 10:09 mold Allergy Unknown Verified 01/03/21 10:09 Penicillins Allergy Rash/Hives Verified 01/03/21 10:09 Physical Exam Vitals: Vital Signs Temp Pulse Pulse Resp BP BP Pulse Ox 01/03/21 08:18 97.9 F 75 16 123/76 97 01/03/21 07:20 93 18 116/78 97 01/03/21 05:18 98.1 F 67 20 139/78 98 Intake and Output 01/02/21 01/03/21 01/03/21 22:59 06:59 14:59 Other: Weight 62.596 kg On physical examination, patient appears comfortable in no apparent distress. HEAD: Normocephalic, atraumatic. EYES: No scleral icterus. No conjunctival injection. MOUTH: No lesions, tongue midline. NECK: Trachea midline, no gross abnormalities. CHEST: Clear to auscultation with no wheezing or rhonchi appreciated. HEART: Regular rate and rhythm. ABDOMEN: Soft, mildly tender to palpation. Bowel sounds are positive. No organomegaly. No guarding or rigidity. EXTREMITIES: No pedal edema. SKIN: No rashes, no jaundice. NEUROLOGIC: Alert and oriented x3. No focal deficits. Results CBC & Chem 7: 01/03/21 06:06 01/03/21 16:31 Labs: Abnormal Lab Results - Last 24 Hours (Table) 01/03/21 01/03/21 01/03/21 Range/Units 06:06 06:06 06:06 RDW 11.4 L (11.5-15.5) % Glucose 110 H (74-99) mg/dL Total Bilirubin 2.9 H (0.2-1.3) mg/dL Lipase 416 H (23-300) U/L Urine Ketones 1+ H (Negative) Ur Leukocyte Esterase Small H (Negative) Urine Mucus Occasional H (None) /hpf Comments: Computed tomography scan from outside facility with report pending Assessment and Plan (1) Abdominal pain Narrative/Plan: 55-year-old female presenting with complaints of abdominal pain transfer from outside hospital for possible pancreatitis. Lipase is not elevated greater than 3 times upper limit of normal currently at 414. She does report prior episode of pancreatitis. She is status post cholecystectomy and denies any excessive alcohol user family history of pancreatic disease. She also reports a history of Gilbert syndrome and benign elevation of total bilirubin which was 2.9 on presentation, liver enzymes otherwise normal with alkaline phosphatase 61, AST 28 and ALT 25. She recently underwent EGD and colonoscopy on 11/26/20 with findings of mild gastritis and rectal polyp. Current Visit: Yes Status: Acute Code(s): R10.9 - UNSPECIFIED ABDOMINAL PAIN SNOMED Code(s): 17044183 (2) Back pain Current Visit: Yes Status: Acute Code(s): M54.9 - DORSALGIA, UNSPECIFIED SNOMED Code(s): 841125091 Plan: Supportive care Nothing by mouth, advance clear liquid diet as abdominal pain improves Continue pain control Continue IV fluid hydration Encourage ambulation as tolerated ANASTACIO and IgG4 ordered Ultrasound of the abdomen offered however the patient is not interested as she reports 2 ultrasounds this year, record request for computed tomography scan from outside hospital Consider MRCP for further evaluation, however patient does report prior screw/hardware in her right hip as an infant which may be prohibitive Thank you for allowing us to participate in the care of the patient
[2021-01-04 09:51] LABS: Basophils # (A) 0.02 X 10*3/uL (0.00-0.10); Basophils % (A) 0.4 %; Eosinophils % (A) 1.8 %; HCT 40.1 % (37.2-46.3); HGB 13.4 g/dL (12.0-15.0); Lymphocytes # (A) 2.33 X 10*3/uL (0.90-5.00); Lymphocytes % (A) 42.5 %; MCH 31.5 pg (27.0-32.0); MCHC 33.4 g/dL (32.0-37.0); MCV 94.4 fL (80.0-97.0); Mean Platelet Volume 9.3 fL (9.5-12.2); Monocytes # (A) 0.38 X 10*3/uL (0.20-1.00); Monocytes % (A) 6.9 %; Neutrophils # (A) 2.64 X 10*3/uL (1.80-7.70); Neutrophils % (A) 48.2 %; Platelet Count 322 X 10*3/uL (140-440); RBC 4.25 X 10*6/uL (4.10-5.20); RDW 11.7 % (11.5-14.5); WBC 5.48 X 10*3/uL (4.50-10.00)
[2021-01-04 09:54] LABS: Chol/HDL Ratio 3.12; Cholesterol 131 mg/dL (0-200); Triglycerides <50.0 mg/dL (0.0-149.0)
[2021-01-04 11:18] LABS: Amylase 76 U/L (30-110); Lipase 509 U/L (23-300)
[2021-01-04 15:46] VITALS: BP 112/71; PULSE 70; RESP 18; TEMP 98
--- NOTE | 2021-01-04 20:19 | DS ---
DISCHARGE SUMMARY DATE OF SERVICE: 01/04/2021 FINAL DIAGNOSES: 1. Abdominal pain with back pain possible acute pancreatitis. 2. History of previous pancreatitis. 3. Elevated total bilirubin. 4. Elevated lipase. 5. History of hyperlipidemia. 6. History of cholecystectomy. 7. History of degenerative joint disease. 8. History of tubal ligation. 9. History of endometriosis. 10.Postoperative nausea, vomiting. 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 12.FULL CODE. DISCHARGE DISPOSITION: The patient discharged in stable condition with guarded prognosis. Gastroenterology cleared discharge. HISTORY OF PRESENT ILLNESS: This 55-year-old woman with a past medical history of multiple medical problems including abdominal pain with possible pancreatitis. Patient treated symptomatically. Dr. España saw the patient and recommended outpatient followup. Lipase is 509 at this time. The patient is feeling better. DISCHARGE ADVICE AND MEDICATIONS: 1. Diet is soft cardiac diet. 2. Activity limited until followup. 3. Follow up with primary physician, Dr. Dubose in 1-2 days. 4. Follow up with Dr. España in 2 weeks. 5. Medications will be: Pepcid 20 mg p.o. b.i.d. 6. Multivitamins one p.o. daily. 7. Vitamin D3 50 mcg p.o. daily. 8. Follow up labs, CBC, CMP, amylase, lipase with Gastroenterology. MMODL / IJN: [id number] /
[2021-01-06 12:01] LABS: IgG Subclass 3 30.8 mg/dL (11.0-85.0); IgG Subclass 4 12.9 mg/dL (3.0-175.0)
== END 2021-01-04 19:00 | disposition home or self-care (01) ==
LOC: EC 05:14 → 6NMEDSUR 07:13
PROVIDERS: ADMIT Hospitalist; ATTEND Hospitalist
DX: R10.10 Upper abdominal pain, unspecified (principal); M54.9 Dorsalgia, unspecified; R74.8 Abnormal levels of other serum enzymes; E78.5 Hyperlipidemia, unspecified; M19.90 Unspecified osteoarthritis, unspecified site; E80.4 Gilbert syndrome; M54.6 Pain in thoracic spine; N80.9 Endometriosis, unspecified; Z79.899 Other long term (current) drug therapy; Z88.0 Allergy status to penicillin; Z91.048 Other nonmedicinal substance allergy status; Z88.8 Allergy status to other drugs, medicaments and biological substances; Z90.49 Acquired absence of other specified parts of digestive tract; Z98.51 Tubal ligation status; Z86.010 Personal history of colon polyps; Z87.19 Personal history of other diseases of the digestive system
CPT/HCPCS: 96360; 96361 ×2; 99285; 36415; 93005; 80061; 80053; 82140; 82150 ×2; 83690 ×2; 85025 ×2; 81001; 82787; 86038; 71045; G0378 ×2

== ENCOUNTER 2021-01-13 10:08 | Emergency (ER) | payer BC ==
[2021-01-13] MEDS ORDERED: KETOROLAC 15 MG/ML 1 ML VIAL IVP STA (10:25)
[2021-01-13] MEDS ORDERED: SODIUM CHLORIDE 0.9% 1,000 ML IV STA (10:25)
[2021-01-13] MEDS ORDERED: ONDANSETRON 4 MG/2 ML VIAL IVP STA (10:25)
[2021-01-13 10:59] LABS: Basophils % (A) 1 %; Eosinophils # (A) 0.1 k/uL (0-0.7); Eosinophils % (A) 1 %; HCT 44.7 % (34.0-46.0); HGB 15.4 gm/dL (11.4-16.0); Lymphocytes # (A) 1.2 k/uL (1.0-4.8); Lymphocytes % (A) 27 %; MCH 32.2 pg (25.0-35.0); MCHC 34.5 g/dL (31.0-37.0); MCV 93.3 fL (80.0-100.0); Mean Platelet Volume 6.9; Monocytes # (A) 0.2 k/uL (0-1.0); Monocytes % (A) 5 %; Neutrophils # (A) 2.9 k/uL (1.3-7.7); Neutrophils % (A) 65 %; Platelet Count 377 k/uL (150-450); RBC 4.79 m/uL (3.80-5.40); RDW 11.6 % (11.5-15.5); WBC 4.5 k/uL (3.8-10.6)
[2021-01-13 11:14] LABS: ALT 22 U/L (4-34); AST 28 U/L (14-36); African American GFR (CKD) >90 (>60 ml/min/1.73 sqM); Albumin 4.7 g/dL (3.5-5.0); Alkaline Phosphatase 58 U/L (38-126); Amylase 85 U/L (30-110); Anion Gap 9 mmol/L; Blood Urea Nitrogen 12 mg/dL (7-17); Calcium 9.9 mg/dL (8.4-10.2); Carbon Dioxide 29 mmol/L (22-30); Chloride 103 mmol/L (98-107); Glucose 107 mg/dL (74-99); Lipase 267 U/L (23-300); Non-African American GFR(CKD) 81 (>60 ml/min/1.73 sqM); Potassium 3.9 mmol/L (3.5-5.1); Sodium 141 mmol/L (137-145); Total Bilirubin 1.9 mg/dL (0.2-1.3); Total Protein 7.5 g/dL (6.3-8.2)
--- NOTE | 2021-01-13 11:34 | XR ---
EXAMINATION TYPE: XR KUB DATE OF EXAM: 01/13/2021 COMPARISON: None INDICATION: Abdomen pain TECHNIQUE: Single view abdomen frontal projection FINDINGS: There is a normal bowel gas pattern. Psoas margins are normal. No organomegaly is present. Tubal ligation clips are present within the pelvis. Cholecystectomy clips are in the right upper quad rant. Lung bases appear clear. IMPRESSION: 1. Unremarkable Abdomen
[2021-01-13 12:03] VITALS: RESP 18
[2021-01-13 12:08] LABS: Appearance,Urine Clear (Clear); Bilirubin,Urine Negative (Negative); Blood,Urine Negative (Negative); Color,Urine Light Yellow; Glucose,Urine (UA) Negative (Negative); Ketones,Urine Negative (Negative); Leukocyte Esterase,Urine Negative (Negative); Nitrite,Urine Negative (Negative); Protein,Urine Negative (Negative); Specific Gravity,Urine 1.008 (1.001-1.035); Urobilinogen,Urine <2.0 mg/dL (<2.0)
[2021-01-13] MEDS ORDERED: ONDANSETRON 4 MG ODT STARTER PACK 2 TAB BTL PO STA (12:17)
--- NOTE | 2021-01-13 12:19 | ED ---
Abdominal Pain HPI - General Chief Complaint: Abdominal Pain Stated Complaint: abd pain Source: patient, RN notes reviewed Mode of arrival: ambulatory Limitations: no limitations - History of Present Illness Initial Comments: Patient is a 55-year-old female that presents to the emergency department complaining of generalized abdominal discomfort. She notes that she was mildly nauseous patientbeen seen several times for this with no answers. She notes that all of her lab work comes back normal. She notes that she tried scheduling appointment with GI specialist but was unable to get in until the end of January. She denied any significant discomfort or pain while sitting up in bed during exam and interview. She notes that she has had a decreased appetite due to nausea. She denied any other issues or complaints at this time. She denied any chest pain shortness of breath headache diarrhea constipation fever fatigue chills. - Related Data Home Medications Medication Instructions Recorded Confirmed Cholecalciferol [Vitamin D3 (25 50 mcg PO DAILY 02/14/20 01/03/21 Mcg = 1000 Iu)] Famotidine 20 mg PO BID PRN 01/03/21 01/03/21 Multivitamins, Thera [Multivitamin 1 tab PO DAILY 01/03/21 01/03/21 (formulary)] Allergies Allergy/AdvReac Type Severity Reaction Status Date / Time adhesive Allergy Rash/Hives Verified 01/13/21 10:09 camphor [From Biofreeze] Allergy Rash/Hives Verified 01/13/21 10:09 menthol [From Biofreeze] Allergy Rash/Hives Verified 01/13/21 10:09 mold Allergy Unknown Verified 01/13/21 10:09 Penicillins Allergy Rash/Hives Verified 01/13/21 10:09 Review of Systems ROS Statement: Those systems with pertinent positive or pertinent negative responses have been documented in the HPI. ROS Other: All systems not noted in ROS Statement are negative. Past Medical History Past Medical History: Hyperlipidemia History of Any Multi-Drug Resistant Organisms: None Reported Past Surgical History: Cholecystectomy, Orthopedic Surgery, Tubal Ligation Additional Past Surgical History / Comment(s): Scopes for Endometriosis. Past Anesthesia/Blood Transfusion Reactions: Postoperative Nausea & Vomiting (PONV) Additional Past Anesthesia/Blood Transfusion Reaction / Comment(s): "Loss of sense of taste and smell for 6 months after last time I had anesthesia". Past Psychological History: No Psychological Hx Reported Smoking Status: Never smoker Past Alcohol Use History: Rare Past Drug Use History: None Reported - Past Family History Mother Family Medical History: No Reported History General Exam Limitations: no limitations General appearance: alert, in no apparent distress Head exam: Present: atraumatic, normocephalic, normal inspection Eye exam: Present: normal appearance, PERRL, EOMI. Absent: scleral icterus, conjunctival injection, periorbital swelling Neck exam: Present: normal inspection Respiratory exam: Present: normal lung sounds bilaterally. Absent: respiratory distress, wheezes, rales, rhonchi, stridor Cardiovascular Exam: Present: regular rate, normal rhythm, normal heart sounds. Absent: systolic murmur, diastolic murmur, rubs, gallop, clicks GI/Abdominal exam: Present: soft, normal bowel sounds. Absent: distended, tenderness, guarding, rebound, rigid Extremities exam: Present: normal inspection, full ROM, normal capillary refill. Absent: tenderness, pedal edema, joint swelling, calf tenderness Neurological exam: Present: alert, oriented X3 Psychiatric exam: Present: normal affect, normal mood Skin exam: Present: warm, dry, intact, normal color. Absent: rash Course Vital Signs 01/13/21 01/13/21 01/13/21 10:09 11:11 12:00 Temperature 98.0 F Pulse Rate 74 Respiratory 16 18 18 Rate Blood Pressure 151/67 O2 Sat by Pulse 98 Oximetry Medical Decision Making - Medical Decision Making 55-year-old female complaining of abdominal pain for several weeks to months. Labs, KUB, 1 L normal saline, 4 mg of Zofran ordered. Labs unremarkable all within normal limits. X-ray negative for any acute process. Patient does have follow-up appointment with GI at an [place] recommend she cont inues to the follow-up. Case discussed with Dr. Deleon, patient can discharge home with follow-up to GI. As planned. - Lab Data Result diagrams: 01/13/21 10:46 01/13/21 10:46 Lab Results 01/13/21 01/13/21 01/13/21 Range/Units 10:46 10:46 10:46 WBC 4.5 (3.8-10.6) k/uL RBC 4.79 (3.80-5.40) m/uL Hgb 15.4 (11.4-16.0) gm/dL Hct 44.7 (34.0-46.0) % MCV 93.3 (80.0-100.0) fL MCH 32.2 (25.0-35.0) pg MCHC 34.5 (31.0-37.0) g/dL RDW 11.6 (11.5-15.5) % Plt Count 377 (150-450) k/uL MPV 6.9 Neutrophils % 65 % Lymphocytes % 27 % Monocytes % 5 % Eosinophils % 1 % Basophils % 1 % Neutrophils # 2.9 (1.3-7.7) k/uL Lymphocytes # 1.2 (1.0-4.8) k/uL Monocytes # 0.2 (0-1.0) k/uL Eosinophils # 0.1 (0-0.7) k/uL Basophils # 0.0 (0-0.2) k/uL Sodium 141 (137-145) mmol/L Potassium 3.9 (3.5-5.1) mmol/L Chloride 103 (98-107) mmol/L Carbon Dioxide 29 (22-30) mmol/L Anion Gap 9 mmol/L BUN 12 (7-17) mg/dL Creatinine 0.82 (0.52-1.04) mg/dL Est GFR (CKD-EPI)AfAm >90 (>60 ml/min/1.73 sqM) Est GFR (CKD-EPI)NonAf 81 (>60 ml/min/1.73 sqM) Glucose 107 H (74-99) mg/dL Calcium 9.9 (8.4-10.2) mg/dL Total Bilirubin 1.9 H (0.2-1.3) mg/dL AST 28 (14-36) U/L ALT 22 (4-34) U/L Alkaline Phosphatase 58 (38-126) U/L Total Protein 7.5 (6.3-8.2) g/dL Albumin 4.7 (3.5-5.0) g/dL Amylase 85 (30-110) U/L Lipase 267 (23-300) U/L Urine Color Light Yellow Urine Appearance Clear (Clear) Urine pH 6.0 (5.0-8.0) Ur Specific Barry 1.008 (1.001-1.035) Urine Protein Negative (Negative) Urine Glucose (UA) Negative (Negative) Urine Ketones Negative (Negative) Urine Blood Negative (Negative) Urine Nitrite Negative (Negative) Urine Bilirubin Negative (Negative) Urine Urobilinogen <2.0 (<2.0) mg/dL Ur Leukocyte Esterase Negative (Negative) Urine HCG, Qual (Not Detectd) 01/13/21 Range/Units 10:46 WBC (3.8-10.6) k/uL RBC (3.80-5.40) m/uL Hgb (11.4-16.0) gm/dL Hct (34.0-46.0) % MCV (80.0-100.0) fL MCH (25.0-35.0) pg MCHC (31.0-37.0) g/dL RDW (11.5-15.5) % Plt Count (150-450) k/uL MPV Neutrophils % % Lymphocytes % % Monocytes % % Eosinophils % % Basophils % % Neutrophils # (1.3-7.7) k/uL Lymphocytes # (1.0-4.8) k/uL Monocytes # (0-1.0) k/uL Eosinophils # (0-0.7) k/uL Basophils # (0-0.2) k/uL Sodium (137-145) mmol/L Potassium (3.5-5.1) mmol/L Chloride (98-107) mmol/L Carbon Dioxide (22-30) mmol/L Anion Gap mmol/L BUN (7-17) mg/dL Creatinine (0.52-1.04) mg/dL Est GFR (CKD-EPI)AfAm (>60 ml/min/1.73 sqM) Est GFR (CKD-EPI)NonAf (>60 ml/min/1.73 sqM) Glucose (74-99) mg/dL Calcium (8.4-10.2) mg/dL Total Bilirubin (0.2-1.3) mg/dL AST (14-36) U/L ALT (4-34) U/L Alkaline Phosphatase (38-126) U/L Total Protein (6.3-8.2) g/dL Albumin (3.5-5.0) g/dL Amylase (30-110) U/L Lipase (23-300) U/L Urine Color Urine Appearance (Clear) Urine pH (5.0-8.0) Ur Specific Barry (1.001-1.035) Urine Protein (Negative) Urine Glucose (UA) (Negative) Urine Ketones (Negative) Urine Blood (Negative) Urine Nitrite (Negative) Urine Bilirubin (Negative) Urine Urobilinogen (<2.0) mg/dL Ur Leukocyte Esterase (Negative) Urine HCG, Qual Not Detected (Not Detectd) - Radiology Data Radiology results: report reviewed, image reviewed KUB: Unremarkable abdomen. Disposition Clinical Impression: Abdominal pain Disposition: HOME SELF-CARE Condition: Stable Instructions (If sedation given, give patient instructions): Abdominal Pain (ED) Additional Instructions: Please return to the Emergency Department if symptoms worsen or any other conc erns. Follow-up with GI as planned. Increase oral fluids. Take Zofran as prescribed. Follow-up with primary care in the next several days. Is patient prescribed a controlled substance at d/c from ED?: No Referrals: Castillo Dubose MD [Primary Care Provider] - 1-2 days Time of Disposition: 12:19
[2021-01-13 12:35] VITALS: BP 137/77; PULSE 73; TEMP 97.7
== END 2021-01-13 12:53 | disposition home or self-care (01) ==
LOC: EC 10:08
DX: R10.84 Generalized abdominal pain (principal); E78.5 Hyperlipidemia, unspecified; Z90.49 Acquired absence of other specified parts of digestive tract; Z88.0 Allergy status to penicillin; Z88.8 Allergy status to other drugs, medicaments and biological substances
CPT/HCPCS: 36415; 80053; 82150; 83690; 85025; 81003; 81025; 74018; 96374; 96375; 96361; 99284; J2405; J1885; S0119